=== PATIENT | male | born 1940 | race American Indian/Alaskan Native ===

== ENCOUNTER 2017-12-04 10:14 | Outpatient (CLI) | payer MEDICARE ==
[2017-12-04] MEDS ORDERED: XYLOCAINE TOPICAL 4% TP ONE (12:00)
== END 2017-12-04 10:15 | disposition home or self-care (01) ==
LOC: WOUND 10:14
PROVIDERS: ATTEND Surgery
DX: L97.311 Non-pressure chronic ulcer of right ankle limited to breakdown of skin (principal); I10 Essential (primary) hypertension; Z86.73 Personal history of transient ischemic attack (TIA), and cerebral infarction without residual deficits; Z87.891 Personal history of nicotine dependence
CPT/HCPCS: 11042; G0463

== ENCOUNTER 2017-12-11 09:05 | Outpatient (CLI) | payer MEDICARE ==
[2017-12-11] MEDS ORDERED: XYLOCAINE TOPICAL 4% TP ONE ×2 (09:14→09:32)
== END 2017-12-11 09:06 | disposition home or self-care (01) ==
LOC: WOUND 09:05
PROVIDERS: ATTEND Surgery
DX: L97.311 Non-pressure chronic ulcer of right ankle limited to breakdown of skin (principal); I73.9 Peripheral vascular disease, unspecified; I10 Essential (primary) hypertension; Z86.73 Personal history of transient ischemic attack (TIA), and cerebral infarction without residual deficits; Z87.891 Personal history of nicotine dependence

== ENCOUNTER 2017-12-18 08:49 | Outpatient (CLI) | payer MEDICARE ==
[2017-12-18] MEDS ORDERED: XYLOCAINE TOPICAL 4% TP ONE (09:27)
[2017-12-18] MEDS ORDERED: AD OINTMENT TP ONE (10:00)
[2017-12-19] MEDS ORDERED: AD OINTMENT TP SCH (10:00)
== END 2017-12-18 08:50 | disposition home or self-care (01) ==
LOC: WOUND 08:49
PROVIDERS: ATTEND Surgery
DX: L97.311 Non-pressure chronic ulcer of right ankle limited to breakdown of skin (principal); I73.9 Peripheral vascular disease, unspecified; I10 Essential (primary) hypertension; Z86.73 Personal history of transient ischemic attack (TIA), and cerebral infarction without residual deficits; Z87.891 Personal history of nicotine dependence
CPT/HCPCS: 29580; A6250

== ENCOUNTER 2017-12-21 11:36 | Outpatient (CLI) | payer MEDICARE | END 2017-12-21 11:37 | disposition home or self-care (01) | LOC: WOUND 11:36 | PROVIDERS: ATTEND Surgery | DX: L97.311 Non-pressure chronic ulcer of right ankle limited to breakdown of skin (principal); I73.9 Peripheral vascular disease, unspecified; I10 Essential (primary) hypertension; Z86.73 Personal history of transient ischemic attack (TIA), and cerebral infarction without residual deficits; Z87.891 Personal history of nicotine dependence | CPT/HCPCS: 29580 ==

== ENCOUNTER 2017-12-25 09:45 | Outpatient (CLI) | payer MEDICARE ==
[2017-12-25] MEDS ORDERED: XYLOCAINE TOPICAL 4% TP ONE (09:51)
[2017-12-25] MEDS ORDERED: AD OINTMENT TP ONE (10:29)
[2017-12-26] MEDS ORDERED: AD OINTMENT TP SCH (10:00)
== END 2017-12-25 09:46 | disposition home or self-care (01) ==
LOC: WOUND 09:45
PROVIDERS: ATTEND Surgery
DX: L97.311 Non-pressure chronic ulcer of right ankle limited to breakdown of skin (principal); I87.2 Venous insufficiency (chronic) (peripheral); I73.9 Peripheral vascular disease, unspecified; I10 Essential (primary) hypertension; Z86.73 Personal history of transient ischemic attack (TIA), and cerebral infarction without residual deficits; Z87.891 Personal history of nicotine dependence
CPT/HCPCS: 29581; A6250

== ENCOUNTER 2018-01-01 09:32 | Outpatient (CLI) | payer MEDICARE ==
[2018-01-01] MEDS ORDERED: XYLOCAINE TOPICAL 4% TP ONE ×2 (09:46→10:07)
== END 2018-01-01 09:33 | disposition home or self-care (01) ==
LOC: WOUND 09:32
PROVIDERS: ATTEND Surgery
DX: L97.311 Non-pressure chronic ulcer of right ankle limited to breakdown of skin (principal); I87.2 Venous insufficiency (chronic) (peripheral); I73.9 Peripheral vascular disease, unspecified; I10 Essential (primary) hypertension; Z86.73 Personal history of transient ischemic attack (TIA), and cerebral infarction without residual deficits; Z87.891 Personal history of nicotine dependence
CPT/HCPCS: 29581

== ENCOUNTER 2018-01-08 09:06 | Outpatient (CLI) | payer MEDICARE ==
[2018-01-08] MEDS ORDERED: XYLOCAINE TOPICAL 4% TP ONE (09:25)
== END 2018-01-08 09:07 | disposition home or self-care (01) ==
LOC: WOUND 09:06
PROVIDERS: ATTEND Surgery
DX: L97.311 Non-pressure chronic ulcer of right ankle limited to breakdown of skin (principal); I87.2 Venous insufficiency (chronic) (peripheral); I73.9 Peripheral vascular disease, unspecified; I10 Essential (primary) hypertension; Z86.73 Personal history of transient ischemic attack (TIA), and cerebral infarction without residual deficits; Z87.891 Personal history of nicotine dependence
CPT/HCPCS: 99213; G0463